=== PATIENT | female | born 1995 | race Caucasian/White ===

== ENCOUNTER 2021-07-05 16:42 | Inpatient (IN) | payer BC ==
[~2021-07-05] VITALS: Ht 152.4 cm; Wt 81.6 kg
[2021-07-05] MEDS ORDERED: EXPECTA PRENAT1 EACH PO (17:23)
[2021-07-05] MEDS ORDERED: ZYRTEC10 M3 PO (17:24)
[2021-07-05] MEDS ORDERED: MELATONIN5 M2 PO (17:25)
[2021-07-05 17:44] LABS: RED BLOOD COUNT 3.58 M/UL (4.00-5.10); WHITE BLOOD COUNT 10.2 K/UL (4.5-11.0)
[2021-07-07] MEDS ORDERED: FEROSUL325 MG PO (00:20)
[2021-07-07] MEDS ORDERED: HYDROCODONE-AC1 EACH PO (00:20)
[2021-07-07] MEDS ORDERED: DOCUSATE SODIU250 MG PO (00:20)
[2021-07-07] MEDS ORDERED: IBUPROFEN600 MG PO (00:20)
[2021-07-07 06:27] LABS: HEMOGLOBIN 7.4 gm/dl (12.3-15.3)
[2021-07-08 04:19] LABS: HEMOGLOBIN 6.5 gm/dl (12.3-15.3)
[2021-07-08] MEDS ORDERED: FEROSUL325 MG PO (07:30)
== END 2021-07-08 14:35 | disposition home or self-care (01) | DRG 807 ==
LOC: GENOP 16:42 → OB 17:00
PROVIDERS: Obstetrics & Gynecology; ADMIT Obstetrics & Gynecology
PROC: 10E0XZZ Delivery of Products of Conception, External Approach (ICD-10-PCS; principal; 2021-07-05)
PROC: 0KQM0ZZ Repair Perineum Muscle, Open Approach (ICD-10-PCS; 2021-07-05)
PROC: 10907ZC Drainage of Amniotic Fluid, Therapeutic from Products of Conception, Via Natural or Artificial Opening (ICD-10-PCS; 2021-07-05)
PROC: 4A1HXCZ Monitoring of Products of Conception, Cardiac Rate, External Approach (ICD-10-PCS; 2021-07-05)
DX: O34.13 Maternal care for benign tumor of corpus uteri, third trimester (principal); Z37.0 Single live birth; D25.9 Leiomyoma of uterus, unspecified; Z20.822 Contact with and (suspected) exposure to COVID-19; O99.02 Anemia complicating childbirth; D64.9 Anemia, unspecified; Z3A.39 39 weeks gestation of pregnancy; O99.344 Other mental disorders complicating childbirth; F41.9 Anxiety disorder, unspecified; F32.9 Major depressive disorder, single episode, unspecified; O70.1 Second degree perineal laceration during delivery
CPT/HCPCS: 36415; 51702; 81001; 82800; 85014; 85018; 85025; 90471; 90715; J0595; J2405; J2550; J2590; J2795; J7120; U0003

== ENCOUNTER 2021-07-10 16:06 | Observation (INO) | payer BC ==
[~2021-07-10 16:06] MED LIST: DOCUSATE SODIU250 MG PO; EXPECTA PRENAT1 EACH PO; FEROSUL325 MG PO; HYDROCODONE-AC1 EACH PO; IBUPROFEN600 MG PO; MELATONIN5 M2 PO; ZYRTEC10 M3 PO
[2021-07-10 18:54] LABS: HEMOGLOBIN 7.7 gm/dl (12.3-15.3)
[2021-07-11 09:51] LABS: HEMOGLOBIN 9.2 gm/dl (12.3-15.3)
== END 2021-07-11 11:33 | disposition home or self-care (01) ==
LOC: CDU 18:15 → OB 18:28
PROVIDERS: Obstetrics & Gynecology; ADMIT Obstetrics & Gynecology
DX: O90.81 Anemia of the puerperium (principal); O72.1 Other immediate postpartum hemorrhage; D64.9 Anemia, unspecified; Z20.822 Contact with and (suspected) exposure to COVID-19; O99.345 Other mental disorders complicating the puerperium; F53.0 Postpartum depression; O99.355 Diseases of the nervous system complicating the puerperium; G43.909 Migraine, unspecified, not intractable, without status migrainosus
CPT/HCPCS: 36415; 36430; 85014; 85018; 86850; 86900; 86901; 86920; G0378; G0379; J7050; P9016; U0002